=== PATIENT | male | born 1975 | race Caucasian/White ===

== ENCOUNTER 2019-11-28 16:44 | Emergency (ER) | payer OTHER ==
[~2019-11-28] VITALS: Ht 180.3 cm; Wt 62.1 kg
[2019-11-28 17:09] LABS: ABSOLUTE NEUTROPHILS 5.8 thou/uL (1.4-8.2); BASOPHILS 0.7 % (0.0-2.0); EOSINOPHILS 0.6 % (0.0-3.0); HEMATOCRIT 38.4 % (42.0-52.0); HEMOGLOBIN 13.2 gm/dL (14.0-18.0); LYMPHOCYTES 19.6 % (24.0-44.0); MCH 34.7 pg (26.0-34.0); MCHC 34.4 g/dL (28.0-37.0); MONOCYTES 11.5 % (1.0-8.0); PLATELET COUNT 294 thou/uL (150-400); POLYS 67.6 % (36.0-66.0); RDW 14.3 % (10.5-14.5); WBC 8.6 thou/uL (4.0-11.0)
[2019-11-28 17:25] LABS: CALCIUM 8.6 mg/dL (8.5-10.1); CREATININE 1.1 mg/dL (0.7-1.3); POTASSIUM 3.5 mmol/L (3.5-5.1)
[2019-11-28 18:40] LABS: AMP/METHAMP Negative (Negative); BARBITURATES Negative (Negative); BENZODIAZEPINES Negative (Negative); COCAINE Negative (Negative); METHADONE Negative (Negative); OPIATES Negative (Negative); PCP Negative (Negative)
[2019-11-28] MEDS ORDERED: NAPROSYN500 MG PO (22:30)
[2019-11-28] MEDS ORDERED: TRAMADOL 50 MG50 MG PO (22:30)
[2019-11-29 02:50] VITALS: BP 138/89
--- NOTE | 2019-11-30 08:12 | HC ---
[facility] [place] [address] CONSULTATION Name: MODESTO SHETTY Room #: [facility]#: [id number] Admission: 11/28/19 Attend Phys: Discharge: 11/29/19 Date of : 75 Report #: [id number] THIS REPORT FOR: cc: MEET - No family physician/PCP MEET - No family physician/PCP Manfred Lance MD ~ CC: Alejandro Pathak [facility] physician/PCP DATE OF SERVICE: 11/28/2019 CHIEF COMPLAINT: Dislocated right hip. HISTORY OF PRESENT ILLNESS: This is a 43-year-old gentleman with a history of multiple hip dislocations coming through the emergency room with a dislocated right total hip arthroplasty. He was belligerent and intoxicated. PAST MEDICAL HISTORY: Significant for seizures. MEDICATIONS: None. ALLERGIES: DEMEROL AND MORPHINE. SOCIAL HISTORY: Significant for tobacco and alcohol. REVIEW OF SYSTEMS: As above. PHYSICAL EXAMINATION: EXTREMITIES: Hip is abducted and internally rotated. He is neurovascularly intact distally. VITAL SIGNS: Notes a blood pressure 137/85, temperature is 36.4, pulse is 94, and respiratory rate is 18. GENERAL: He is awake and belligerent. IMAGING: X-rays note a posterior dislocation of the right total hip arthroplasty with abundant heterotopic ossification. IMPRESSION: Right hip dislocated arthroplasty. PROCEDURE: The patient was sedated with propofol per the Emergency Room physician. Conscious sedation. Once sedated, a reduction of the hip was achieved with traction and countertraction on the pelvis, bringing the hip into the socket. X-rays were taken noted a __ concentric reduction of the hip. IMPRESSION: Multiple hip dislocations with a dislocated hip, now reduced. [facility] [address] [place] [address] CONSULTATION Name: MODESTO SHETTY [id number] Admission: 11/28/19 Attend Phys: Discharge: 11/29/19 Date of : 75 Report #: [id number] PLAN: The patient will follow up as needed. He is released as per the Emergency Room protocol. <ELECTRONICALLY SIGNED> By: Manfred Lance MD 11/30/19811 1935 04 Manfred Lance MD /nt
== END 2019-11-29 02:52 | disposition home or self-care (01) ==
LOC: ER 16:44
PROVIDERS: Emergency Medicine
DX: T84.020A Dislocation of internal right hip prosthesis, initial encounter (principal); F10.129 Alcohol abuse with intoxication, unspecified; F17.210 Nicotine dependence, cigarettes, uncomplicated; Z59.0 Homelessness; Z88.5 Allergy status to narcotic agent; X50.1XXA Overexertion from prolonged static or awkward postures, initial encounter; Y93.89 Activity, other specified; Y92.89 Other specified places as the place of occurrence of the external cause; Y99.9 Unspecified external cause status; Y90.9 Presence of alcohol in blood, level not specified